=== PATIENT | male | born 1970 | race Caucasian/White ===

== ENCOUNTER 2019-04-01 06:41 | Emergency (ER) | payer BC, OTHER ==
[~2019-04-01] VITALS: Ht 175.3 cm; Wt 79.4 kg
[2019-04-01] MEDS ORDERED: SULFAMETH/TRIMETH 800/160 MG TABLET PO ONE (07:00)
[2019-04-01] MEDS ORDERED: SULFAMETH/TRIMETH 800/160 MG TABLET ONE (07:04)
--- NOTE | 2019-04-01 07:07 | NUR ---
Patient discharged to home in stable conditon. Written and verbal after care instructions given. Patient verbalizes understanding of instructions.
== END 2019-04-01 07:08 | disposition home or self-care (01) ==
LOC: ER 06:45
DX: L03.113 Cellulitis of right upper limb (principal); E78.5 Hyperlipidemia, unspecified; Z88.0 Allergy status to penicillin
CPT/HCPCS: A4663